=== PATIENT | male | born 1960 | race Caucasian/White ===

== ENCOUNTER 2017-01-29 18:17 | Emergency (ER) | payer OTHER ==
[~2017-01-29 18:17] MED LIST: AMOXIL500 MG PO; BACTRIM DS 8001 TAB PO; CIPRO 500MG (E500 MG PO; FLOMAX(MONOGRA0.4 MG PO
--- NOTE | 2017-01-29 18:22 | ED GI/GU/ABDOMINAL COMPLAINT ---
History of Present Illness General Chief Complaint: Male Genitourinary Problems Stated Complaint: PT CAN'T USE THE BATHROOM Source: patient, old records Exam Limitations: no limitations Vital Signs & Intake/Output Vital Signs & Intake/Output Vital Signs Date Time Temp Pulse Resp B/P Pulse O2 O2 Flow FiO2 Ox Delivery Rate 01/29 1827 96.2 84 20 128/68 96 Room Air Allergies Coded Allergies: NO KNOWN ALLERGIES (04/02/15) NKA PER ANTIBIOTIC ORDER SHEET OF 02/01/13 - [facility] Reconcile Medications Atorvastatin Calcium 10 MG TABLET 1 TAB PO DAILY CHOLESTEROL (Reported) Metformin HCl 1,000 MG TABLET 1 TAB PO BID BLOOD SUGAR CONTROL (Reported) Multivitamin (Multi-Day Vitamins) 1 EACH TABLET 1 TAB PO DAILY SUPPLEMENT ( Reported) Tamsulosin HCl 0.4 MG CAP.ER.24H 1 CAP PO DAILY URINATION (Reported) Triage Nurses Notes Reviewed? yes Onset: Abrupt Duration: hour(s): (5), constant Timing: recent history Quality/Severity: pressure Severity Numbers: 9 Location: suprapubic Radiation: no radiation Activities at Onset: none Prior Abdominal Problems: similar symptoms No Modifying Factors: none Associated Symptoms: denies HPI: 56-year-old male with history of urinary retention presents emergency room complaining of the same since 1 PM this afternoon. The patient has been seen here numerous times in the past for similar episodes. His urologist is Dr. Marc. He denies any dysuria urgency frequency. He is complaining of pain and pressure over his bladder. No penile discharge no hematuria no scrotal pain rashes to his skin. He denies any other abdominal pain fever or chills.. pain Is constant throbbing pressure-like nonradiating no back pain. no modifying factors Past History Travel History Traveled to [place] past 21 day No Medical History Any Pertinent Medical History? 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 No Review of Systems Review of Systems Constitutional: Reports: see HPI. All Other Systems: Reviewed and Negative Comments Review of systems: See HPI, All other systems negative. Constitutional, no chills no fever, no malaise HEENT: no sore throat no congestion, no ear pain Cardiovascular: No chest pain , no palpitation Skin, no rashes, no change in skin Respiratory: No dyspnea no cough no sputum GI: No nausea no vomiting, no diarrhea, no bloating/constipation : No dysuria no hematuria, no frequency Muscle skeletal: No joint pain, no joint swelling, no back pain, no neck pain, Neurologic: No numbness no confusion, no headache Psych: No stress Heme/endocrine: No bruising no bleeding Immunology: No lymphadenopathy, Physical Exam Physical Exam General Appearance: well developed/nourished, no apparent distress, alert, comfortable Gastrointestinal: soft, tenderness (suprapubic) Comments: Well-developed well-nourished person in no acute distress HEENT: Normal EENT exam; PERRL, EOMI, HEAD is atraumatic. moist mucous membranes. Neck: Supple, normal range of motion Back: Nontender, no CVA tenderness. Full range of motion Cardiovascular: Regular rate and rhythms no murmurs rubs Respiratory: No respiratory distress. Patient speaking in full complete sentences. Breath sounds clear to auscultation bilaterally: NO W/R/R Abdomen: Soft, suprapubic tenderness nondistended, Extremity: No edema, full range of motion of extremities Neuro: Alert oriented x3, motor sensory normal. There were no obvious focal neurologic abnormalities. Skin: No appreciable rash on exposed skin, skin is warm and dry. Psych: Mood and affect is normal, memory and judgment is normal. Core Measures ACS in differential dx? No Severe Sepsis Present: No Septic Shock Present: No Progress Differential Diagnosis: malignancy, uti, pyelo, urinary retention, bph Plan of Care: Orders Procedure Date/time Status Cho, Insertion/Removal/Asses 01/29 1821 Active CULTURE,URINE 01/29 1821 Active URINALYSIS 01/29 1821 Complete Laboratory Tests 01/29/171840: Urine Color YEL, Urine Clarity CLEAR, Urine pH 6.0, Ur Specific [place] <= 1.005 , Urine Protein NEG, Urine Ketones NEG, Urine Nitrite NEG, Urine Bilirubin NEG, Urine Urobilinogen 0.2, Ur Leukocyte Esterase NEG, Ur Microscopic SEDIMENT EXAMINED, Urine RBC 3-5, Urine WBC 1-3 H, Ur Epithelial Cells RARE, Urine Hemoglobin LARGE H, Urine Glucose 250 H Microbiology 01/29 1841 URINE ROUT: Urine Culture - RECD cho placed with immediate relief of sx d/w the pt labs and plan of care- pt will go home with leg bag which he has had inthe past, will f/u with his urologist dr marc on , he will return with any concerns i answered all of his questions cleared for dc (RAN LEDESMA,JACQUELINE) Initial ED EKG: none Departure Departure Time of Disposition: 1907 Disposition: HOME OR SELF CARE Condition: Stable Clinical Impression Primary Impression: Urinary retention Referrals: JOANNE NEWELL,KAYLEE Richter (PCP/Family) LUIS FELIPE MARC MD Additional Instructions: follow up with your urologist dr marc on tuesday for cho removal.continue taking your medication as prescribed. return to the ER at anytime sooner with any concerns Departure Forms: Customer Survey General Discharge Information
[2017-01-29 18:27] VITALS: BP 128/68
[2017-01-29] MEDS ORDERED: TAMSULOSIN HCL0.4 M1 PO (18:27)
[2017-01-29] MEDS ORDERED: ATORVASTATIN CA10 M1 PO (18:28)
[2017-01-29] MEDS ORDERED: MULTI-DAY VITA1 EACH PO (18:28)
[2017-01-29] MEDS ORDERED: METFORMIN HCL1000 M1 PO (18:28)
[2017-01-30] MEDS ORDERED: BACTRIM DS TAB1 EACH PO (17:47)
== END 2017-01-29 19:59 ==
LOC: ERH 18:17
DX: R33.9 Retention of urine, unspecified (principal)
CPT/HCPCS: 81001; 87086

== ENCOUNTER 2017-01-30 16:23 | Emergency (ER) | payer OTHER ==
[~2017-01-30 16:23] MED LIST changes: +ATORVASTATIN CA10 M1 PO; +METFORMIN HCL1000 M1 PO; +MULTI-DAY VITA1 EACH PO; +TAMSULOSIN HCL0.4 M1 PO
[2017-01-30 16:29] VITALS: BP 142/91
--- NOTE | 2017-01-30 16:39 | ED GI/GU/ABDOMINAL COMPLAINT ---
History of Present Illness General Chief Complaint: Male Genitourinary Problems Stated Complaint: SEEN LAST NIGHT FOR URINARY RETENTION LA LEAKIN Source: patient Exam Limitations: no limitations Vital Signs & Intake/Output Vital Signs & Intake/Output Vital Signs Date Time Temp Pulse Resp B/P Pulse O2 O2 Flow FiO2 Ox Delivery Rate 01/30 1629 97.0 93 16 142/91 97 Room Air Allergies Coded Allergies: NO KNOWN ALLERGIES (01/29/17) NKA PER ANTIBIOTIC ORDER SHEET OF 02/01/13 - S Reconcile Medications Atorvastatin Calcium 10 MG TABLET 1 TAB PO DAILY CHOLESTEROL (Reported) Metformin HCl 1,000 MG TABLET 1 TAB PO BID BLOOD SUGAR CONTROL (Reported) Multivitamin (Multi-Day Vitamins) 1 EACH TABLET 1 TAB PO DAILY SUPPLEMENT ( Reported) Sulfamethoxazole/Trimethoprim (Bactrim Ds Tablet) 800 MG-160 MG TABLET 1 TAB PO BID UTI Tamsulosin HCl 0.4 MG CAP.ER.24H 1 CAP PO DAILY URINATION (Reported) Triage Note: TRIAGE; PT TO ED WITH BLOOD IN CATHETER AND AROUND IT. STATES WAS HERE LAST NIGHT AND HAD IT PLACED. STATES HE IS ON FLOMAX. PT REQUESTING CATHETER TO BE REMOVED. Triage Nurses Notes Reviewed? yes Duration: getting worse Timing: recent history Severity Numbers: 5 Location: urethral Radiation: no radiation Activities at Onset: none Prior Abdominal Problems: similar symptoms HPI: Patient is a 56-year-old male with a past medical history of diabetes and chronic urine retention who currently is compliant with his Flomax his urologist Dr. Marc who was evaluated here [place] emergency room yesterday for concerns of urinary retention yesterday where he had a La catheter leg bag placed where he had significant resolution of his abdominal pain yesterday where the urine per old records had a negative urine culture Patient states that today he had a gradual onset of urethral discomfort and noted mild urethral blood where he is requesting removal of the La catheter. Patient denies any fever chills abdominal pain back pain testicular pain or swelling. Denies any nausea vomiting is able tolerate by mouth. He does state that the urine bag La is producing cloudy urine with no blood Past History Medical History Any Pertinent Medical History? 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 No Review of Systems Review of Systems Constitutional: Reports: no symptoms. EENTM: Reports: no symptoms. Respiratory: Reports: no symptoms. Cardiovascular: Reports: no symptoms. GI: Reports: see HPI. Denies: abdominal pain, nausea. Genitourinary: Reports: see HPI, pain. Musculoskeletal: Reports: no symptoms. Skin: Reports: no symptoms. Neurological/Psychological: Reports: no symptoms. Hematologic/Endocrine: Reports: no symptoms. Immunologic/Allergic: Reports: no symptoms. All Other Systems: Reviewed and Negative Physical Exam Physical Exam General Appearance: well developed/nourished, no apparent distress, alert Head: atraumatic Eyes: Bilateral: normal appearance. Neck: normal inspection Respiratory: normal breath sounds, chest non-tender Cardiovascular: regular rate/rhythm Gastrointestinal: normal bowel sounds, soft, non-tender, no organomegaly Male Genitals: NOTED La CATHETER INDWELLING WITH MILD DRIED BLOOD TO THE PRE- PUS AND THE La CATHETER La BAG NOTED CLOUDY URINE WITH NO HEMATURIA SIGNS Back: normal inspection, normal range of motion Extremities: normal range of motion Core Measures ACS in differential dx? No Severe Sepsis Present: No Septic Shock Present: No Progress Differential Diagnosis: AAA, AMI, appendicitis, biliary colic, bowel obstruction , colon cancer, cholecystitis, diverticulitis, epididymitis, esophageal varices, gastritis, hepatitis, hernia, hemorrhoids, ischemic bowel, inflamm bowel dis, Debbie-Amy tear, orchitis, pancreatitis, prostatitis, peptic ulcer, PUD/GERD, perforated viscous, pyelonephritis, SBO, STD, testicular torsion, ureterolithiasis, urinary retention, urethritis, UTI/pyelo Plan of Care: Orders Procedure Date/time Status CULTURE,URINE 01/30 1639 Active URINALYSIS 01/30 1639 Complete Discontinue Nursing Interventi 01/30 1638 Active Laboratory Tests 01/30/17 1717: Urinalysis LIGHT H, Urine Color LIBERTAD, Urine Clarity CLDY H, Urine pH 5.5, Ur Specific [place] >= 1.030, Urine Protein 100 H, Urine Ketones TRACE H, Urine Nitrite NEG, Urine Bilirubin NEG@ICTO, Urine Urobilinogen 0.2, Ur Leukocyte Esterase NEG, Ur Microscopic SEDIMENT EXAMINED, Urine RBC >75 H, Urine WBC 5-10 H, Ur Epithelial Cells FEW, Urine Crystals 1+ [place] H, Urine Bacteria MOD H, Urine Mucus RARE, Urine Hemoglobin LARGE H, Urine Glucose NEG Microbiology 01/30 1717 URINE ROUT: Urine Culture - RECD Patient currently is in no apparent distress and has nontender abdomen La bag noted to have cloudy urine with no hematuria. No testicular pain or swelling on exam. Patient does state that he's been evaluated by Dr. Marc multiple occasions with no ETIOLOGY of his urine retention. Denies any narcotic use denies any BPH history La catheter was removed by nursing staff without complications Patient was given by mouth water which he was able to produce urine Patient did have concerns of UTI urine culture pending Patient was examined again prior to discharge and having nontender abdomen. Patient was strongly advised to follow tomorrow to follow-up with urologist (ALE LEDESMA,JACQUELINE) Initial ED EKG: none Departure Departure Disposition: HOME OR SELF CARE Condition: Stable Clinical Impression Primary Impression: Problem with La catheter Secondary Impressions: UTI (urinary tract infection) Referrals: JOANNE NEWELL,KAYLEE Richter (PCP/Family) Additional Instructions: As discussed continue home medications as directed. Follow up tomorrow with your established urologist Dr. Marc. Continue all medications as directed. IF Symptoms worsen return to emergency room Begin the prescription of Bactrim as directed for the full course. Persistence waiting at [facility] pharmacy. Departure Forms: Customer Survey General Discharge Information Prescriptions: Current Visit Scripts Sulfamethoxazole/Trimethoprim (Bactrim Ds Tablet) 1 TAB PO BID #14 TAB
[2017-01-30] MEDS ORDERED: BACTRIM DS TAB1 EACH PO (17:47)
== END 2017-01-30 17:54 ==
LOC: ERH 16:23
DX: N39.0 Urinary tract infection, site not specified (principal); T83.098A Other mechanical complication of other urinary catheter, initial encounter
CPT/HCPCS: 81001; 87086